=== PATIENT | male | born 1945 | race Caucasian/White ===

== ENCOUNTER → 2020-04-28 11:04 | Outpatient (BNVA) | payer MEDICARE, SELFPAY | PROVIDERS: PCP Internal Medicine; Visit Provider Surgery | DX: C34.11 Malignant neoplasm of upper lobe, right bronchus or lung (principal); C79.9 Secondary malignant neoplasm of unspecified site | CPT/HCPCS: 99205 ==

== ENCOUNTER 2020-05-09 08:33 | Outpatient (REF) | payer MEDICARE, SELFPAY ==
--- NOTE | 2020-05-09 | XR_ITS ---
EXAMINATION: X-RAY ORBITS CLINICAL INFORMATION: Metal to eye. Pre-MRI. COMPARISON: None TECHNIQUE: 3 views of the orbits FINDINGS: No metallic foreign bodies in the location of the orbits. Visualized paranasal sinuses are well aerated. Dental hardware noted. XR/XR pre mri screening IMPRESSION: No metallic foreign bodies in the location of the orbits.
--- NOTE | 2020-05-09 09:11 | MR_ITS ---
EXAMINATION: MR BRAIN WITHOUT AND WITH CONTRAST CLINICAL INFORMATION: Malignant neoplasm of upper lobe, right bronchus or lung. COMPARISON: None available. TECHNIQUE: Multiplanar, multisequence imaging of the brain was performed before and after the intravenous administration of 8.5 mL of Gadavist. FINDINGS: There is no acute infarction, mass, hemorrhage, or extra-axial collection. No abnormal or unexpected intracranial enhancement is seen. The ventricles, sulci, and basilar cisterns are normal in size and configuration. Mild patchy foci of T2/FLAIR hyperintensity are seen within the cerebral white matter likely reflecting chronic microangiopathy. Degenerative changes are seen within the upper cervical spine with disc osteophyte complex noted at C3-C4 and C4-C5 resulting in ventral deformation of the cord. The marrow signal appears normal. A right lens replacement is noted. MR/MR head/brain wo/w con IMPRESSION: No intracranial metastasis identified. No acute infarction, mass effect, or enhancing lesion. A chronic changes of chronic microangiopathy.
[2020-05-09 09:31] LABS: Blood Urea Nitrogen 15 mg/dL (9-16); Estimated Glomerular Filt Rate 57
== END 2020-05-09 08:34 | disposition home or self-care (01) ==
LOC: HO.MRI 08:33
PROVIDERS: PCP Internal Medicine; Visit Provider Surgery
DX: C34.11 Malignant neoplasm of upper lobe, right bronchus or lung (principal); C79.9 Secondary malignant neoplasm of unspecified site
CPT/HCPCS: 36415; 70553; 82565; 84520; A9585

== ENCOUNTER 2020-05-16 10:59 | Day surgery (SDC) | payer MEDICARE, SELFPAY ==
[2020-05-16] VITALS (7 sets, daily range): BP systolic 122–143; BP diastolic 67–72; PULSE 66–80; RESP 16–20; TEMP 36.1–36.4; O2SAT 96–97; BMI 27.6
--- NOTE | ~2020-05-16 | CT_ITS ---
PROCEDURE: CT GUIDED BIOPSY, LUNG CLINICAL INFORMATION: Right upper lobe lung mass COMPARISON: Previous outside chest CT 04/13/2020 TECHNIQUE: Procedure and risks and benefits including bleeding, infection and pneumothorax were discussed with the patient and informed consent was obtained. Patient was positioned in the prone position. Limited axial images through the upper chest were obtained. The right upper posterior chest was prepped and draped in the usual sterile fashion. The skin and soft tissues were anesthetized with 1% lidocaine plain. Using CT guidance and a coaxial system, access to the right upper lobe mass was obtained. 4 20-gauge core biopsies were obtained. There is no complication. Patient received Versed 1.5 mg and fentanyl 75 mcg intravenously during the procedure. Total sedation time was [address] examination was performed using dose optimization techniques as appropriate, variously including the following: *Automated exposure control *Adjustment of mA and/or kV according to patient size (this includes techniques or standardized protocols for targeted exams where dose is matched to indication/reason for exam; i.e. extremities or head) *Use of iterative reconstruction technique DLP: 88 mGy-cm FINDINGS: There is a 6 cm mass at the right lung apex that was targeted for biopsy. This destroys the adjacent posterior second rib and extends outside the chest into the posterior soft tissues. This also may erode the right side of the T2 vertebral body. CT/CT biopsy lung RT IMPRESSION: CT-guided right upper lobe lung biopsy.
--- NOTE | ~2020-05-16 | XR_ITS ---
EXAMINATION: XR CHEST CLINICAL INFORMATION: Post lung biopsy COMPARISON: Outside chest CT 04/13/2020 TECHNIQUE: Frontal view of the chest was obtained. FINDINGS: There is a mass at the right lung apex. There is destruction of the adjacent right second rib. The lungs are otherwise clear. There is no pleural effusion or pneumothorax. The cardiac and mediastinal contours are normal. There are degenerative changes of the spine. XR/XR chest 1V IMPRESSION: No pneumothorax post right upper lobe lung biopsy. Mass at the right lung apex and destruction of the adjacent right second rib.
[2020-05-16 11:59] LABS: MANUAL DIFF FLAG NO
[2020-05-16 12:03] LABS: Basophils Percent Auto 0.2 % (0-2); Eosinophils Absolute Auto 0.1 X10*3/uL (0.0-0.4); Hematocrit 42.6 % (42-52); Hemoglobin 13.9 g/dl (14.0-18.0); Imm Gran Abs Auto 0.04 X10*3/uL (0.00-0.03); Imm Gran Pct Auto 0.5 % (0.0-0.4); Lymphocytes Absolute Auto 2.6 X10*3/uL (1.2-4.9); Lymphocytes Percent Auto 31.8 % (20-40); Mean Corpuscular HGB Conc 32.6 g/dl (31.0-36.0); Mean Corpuscular Hemoglobin 29.4 pg (27.0-33.0); Mean Corpuscular Volume 90.1 fL (80-98); Mean Platelet Volume 9.1 fL (9.4-12.4); Monocytes Absolute Auto 0.8 X10*3/uL (0.1-1.2); Monocytes Percent Auto 10.1 % (2-11); Neutrophils Absolute Auto 4.7 X10*3/uL (2.0-8.3); Neutrophils Percent Auto 56.4 % (45-73); Platelet Count 241 X10*3/uL (160-400); Red Blood Count 4.73 X10*6/uL (4.60-5.80); Red Cell Distribution Width 12.6 % (11.0-16.0); White Blood Count 8.2 X10*3/uL (4.8-10.8)
[2020-05-16 12:08] LABS: INTERNATIONAL NORM RATIO 1.2 (0.9-1.1); Prothrombin Time 14.3 SEC (10.8-13.0)
[2020-05-16 12:10] LABS: Partial Thromboplastin Time 28.3 SEC (24.1-38.0)
--- NOTE | 2020-05-16 13:25 | HO.RADPN ---
RADIOLOGY Narrative Narrative: CT guided right upper lobe lung biopsy using a coaxial system. 4 20 g core biopsies. No complication.
[2020-05-16] MEDS: Lidocaine HCl 1 % MPF 5 ML VIAL 10 ML SUBCUT (13:40)
== END 2020-05-16 16:00 | disposition home or self-care (01) ==
PROVIDERS: PCP Internal Medicine; Visit Provider Radiology Diagnostic Radiology
DX: C34.11 Malignant neoplasm of upper lobe, right bronchus or lung (principal); F17.210 Nicotine dependence, cigarettes, uncomplicated
CPT/HCPCS: 32408; 36415; 71045; 85025; 85610; 85730; 88305; 88341; 88342; 99152; J2250; J3010

== ENCOUNTER → 2020-05-19 10:28 | Outpatient (BNVA) | payer MEDICARE, SELFPAY | PROVIDERS: PCP Internal Medicine; Visit Provider Surgery | DX: Z13.89 Encounter for screening for other disorder (principal) | CPT/HCPCS: 99215 ==

== ENCOUNTER 2020-09-07 12:59 | Outpatient (REF) | payer MEDICARE, SELFPAY ==
--- NOTE | ~2020-09-07 | US_ITS ---
EXAMINATION: US EXTRACRANIAL CAROTID DUPLEX, BILATERAL CLINICAL INFORMATION: Occlusion and stenosis of bilateral carotid arteries. Technologist notes a history of right endarterectomy October 2018 COMPARISON: Prior ultrasounds, most recently 08/09/2019 TECHNIQUE: Real-time ultrasound and Doppler techniques (integrating B-mode 2-D vascular images, Doppler spectral analysis and color-flow Doppler imaging) were utilized to interrogate the extracranial carotid arteries, the vertebral arteries and proximal subclavian arteries bilaterally. The degree of stenosis is determined by criteria similar to NASCET. FINDINGS: Note on several Doppler analyses, there is an incidental note of an arrhythmia. Right Side: 1. There is minimal atherosclerotic plaque seen in the bifurcation/proximal ICA region. 2. The common carotid artery PSV proximally is 95.1 cm/s and distally 88 cm/s. 3. The proximal internal carotid artery velocities are 68.4 cm/s systolic and 10.6 cm/s diastolic. 4. The proximal external carotid artery PSV is 153 cm/s. 5. The vertebral artery shows antegrade flow. 6. The subclavian artery waveforms are normal. Left Side: 1. There is moderate to severe heterogeneous atherosclerotic plaque seen in the bifurcation/proximal ICA region. 2. The common carotid artery PSV proximally is 91.5 cm/s and distally 101 cm/s. 3. The proximal internal carotid artery velocities are 120 cm/s systolic and 29.9 cm/s diastolic. 4. The proximal external carotid artery PSV is 151 cm/s. 5. The vertebral artery shows antegrade flow. 6. The subclavian artery waveforms are normal. In the right supraclavicular region there is a hypoechoic 1.2 x 1.7 x 2 cm lymph node. This could represent a manifestation of the patient's known lung cancer. US/US carotid duplex BI IMPRESSION: 1. RIGHT: Minimal, non-hemodynamically significant stenosis of the proximal right internal carotid artery corresponding to a 0-49% stenosis by velocity criteria. 2. LEFT: Minimal, non-hemodynamically significant stenosis of the proximal left internal carotid artery corresponding to a 0-49% stenosis by velocity criteria. 3. There is no change in the category severity of disease when compared to the previous study dated 08/09/2019. 4. Hypoechoic irregular right supraclavicular lymph node which may represent a manifestation of the patient's known lung cancer.
== END 2020-09-07 13:00 | disposition home or self-care (01) ==
LOC: HO.HMGCX 12:59
PROVIDERS: PCP Internal Medicine; Visit Provider Surgery Vascular Surgery
DX: I65.23 Occlusion and stenosis of bilateral carotid arteries (principal)
CPT/HCPCS: 93880

== ENCOUNTER → 2020-09-26 10:15 | Outpatient (BNVA) | payer MEDICARE, SELFPAY | PROVIDERS: PCP Internal Medicine; Visit Provider Surgery Vascular Surgery | DX: I65.23 Occlusion and stenosis of bilateral carotid arteries (principal) | CPT/HCPCS: 99212 ==

== ENCOUNTER 2021-09-12 08:53 | Outpatient (REF) | payer MEDICARE, SELFPAY ==
--- NOTE | ~2021-09-12 | US_ITS ---
EXAMINATION: US EXTRACRANIAL CAROTID DUPLEX, BILATERAL CLINICAL INFORMATION: Carotid stenosis, history of prior right carotid endarterectomy COMPARISON: Ultrasound from 09/07/2020 and 08/09/2019 TECHNIQUE: Real-time ultrasound and Doppler techniques (integrating B-mode 2-D vascular images, Doppler spectral analysis and color-flow Doppler imaging) were utilized to interrogate the extracranial carotid arteries, the vertebral arteries and proximal subclavian arteries bilaterally. The degree of stenosis is determined by criteria similar to NASCET. FINDINGS: Right Side: 1. There is mild atherosclerotic plaque seen in the bifurcation/proximal ICA region. Postsurgical changes is seen in the carotid bifurcation and proximal internal carotid artery consistent with prior carotid endarterectomy. No significant change in appearance compared to the prior exam. 2. The common carotid artery PSV proximally is 84.4 cm/s and distally 90.9 cm/s. 3. The proximal internal carotid artery velocities are 72.1 cm/s systolic and 13.5 cm/s diastolic. 4. The proximal external carotid artery PSV is 113 cm/s. 5. The vertebral artery shows antegrade flow. 6. The subclavian artery waveforms are normal. Left Side: 1. There is mild to moderate atherosclerotic plaque seen in the bifurcation/proximal ICA region. 2. The common carotid artery PSV proximally is 108 cm/s and distally 101 cm/s. 3. The proximal internal carotid artery velocities are 107 cm/s systolic and 28.3 cm/s diastolic. 4. The proximal external carotid artery PSV is 123 cm/s. 5. The vertebral artery shows antegrade flow. 6. The subclavian artery waveforms are normal. US/US carotid duplex BI IMPRESSION: 1. RIGHT: Minimal, non-hemodynamically significant stenosis of the proximal right internal carotid artery corresponding to a 0-49% stenosis by velocity criteria. Stable postsurgical changes consistent with prior carotid endarterectomy 2. LEFT: Minimal, non-hemodynamically significant stenosis of the proximal left internal carotid artery corresponding to a 0-49% stenosis by velocity criteria. 3. There is no change in the category severity of disease when compared to the previous study dated 09/07/2020.
== END 2021-09-12 08:54 | disposition home or self-care (01) ==
LOC: HO.HMGCX 08:53
PROVIDERS: PCP Internal Medicine; Visit Provider Surgery Vascular Surgery
DX: I65.23 Occlusion and stenosis of bilateral carotid arteries (principal)
CPT/HCPCS: 93880

== ENCOUNTER → 2021-10-02 09:43 | Outpatient (BNVA) | payer MEDICARE, SELFPAY | PROVIDERS: PCP Internal Medicine; Visit Provider Surgery Vascular Surgery | DX: I65.23 Occlusion and stenosis of bilateral carotid arteries (principal) | CPT/HCPCS: 99212 ==